=== PATIENT | male | born 1965 | race African-American/Black ===

== ENCOUNTER 2023-02-11 16:22 | Inpatient (IN) | payer OTHER ==
[2023-02-11 17:25] VITALS: BMI 27.4
[2023-02-11] MEDS ORDERED: DICYCLOMINE HCL 10 MG CAPSULE PO PRN (18:06)
[2023-02-11] MEDS ORDERED: BENZOCAINE/MENTHOL (CHLORASEPTIC ) LOZENGE MM PRN (18:06)
[2023-02-11] MEDS ORDERED: NALOXONE HCL (KLOXXADO) 8 MG SPRAY NS PRN (18:06)
[2023-02-11] MEDS ORDERED: ACETAMINOPHEN 325 MG TABLET (FP) PO PRN (18:06)
[2023-02-11] MEDS ORDERED: IBUPROFEN 600 MG TABLET (FP) PO PRN (18:06)
[2023-02-11] MEDS ORDERED: ONDANSETRON *ODT* 4 MG TABLET SL PRN (18:06)
[2023-02-11] MEDS ORDERED: BENZONATATE 200 MG CAPSULE PO PRN (18:06)
[2023-02-11] MEDS ORDERED: MAGNESIUM HYDROX 2400MG/30ML ORAL SUSPENSION 30 ML CUP PO PRN (18:06)
[2023-02-11] MEDS ORDERED: NALOXONE HCL 0.4 MG/ML VIAL IM PRN (18:06)
[2023-02-11] MEDS ORDERED: NICOTINE 10 MG CARTRIDGE (INHALER) IH PRN (18:06)
[2023-02-11] MEDS ORDERED: BISMUTH SUBSALICYLATE 524 MG/30 ML PO PRN (18:06)
[2023-02-11] MEDS ORDERED: cloNIDine HCL 0.1 MG TABLET PO PRN (18:06)
[2023-02-11] MEDS ORDERED: guaiFENesin 600 MG TABLET.ER (FP) PO PRN (18:06)
[2023-02-11] MEDS ORDERED: POLYETHYLENE GLYCOL (HEALTHYLAX) 3350 17 GM PACKET PO PRN (18:06)
[2023-02-11] MEDS ORDERED: IBUPROFEN 400 MG TABLET (FP) PO PRN (18:06)
[2023-02-11] MEDS ORDERED: LOPERAMIDE HCL 2 MG CAPSULE PO PRN (18:06)
[2023-02-11] MEDS ORDERED: MAG HYDROX/AL HYDROX/SIMETH 30 ML UNIT-DOSE CUP PO PRN (18:06)
[2023-02-11] MEDS ORDERED: methaDONE HCL 10 MG TABLET (FOR DETOX USE ONLY) PO ONE (19:00)
[2023-02-11] MEDS: MELATONIN 5 MG TABLETS PO SCH (22:31)
[2023-02-11] MEDS: THIAMINE HCL 100 MG TABLET (FP) PO SCH (22:31)
[2023-02-12] MEDS: LOSARTAN 50MG/HCTZ 12.5MG 1 TAB PO SCH (10:01)
[2023-02-12] MEDS: ASPIRIN 81 MG CHEWABLE TABLETS PO SCH (10:01)
[2023-02-12] MEDS: PRENATAL VITAMINS W/ FOLIC ACID TABLET (FP) PO SCH (10:01)
[2023-02-12] MEDS: METHOCARBAMOL 500 MG TABLET PO PRN (10:02)
[2023-02-12 12:30] LABS: CHLORIDE 98 mmol/L (98-107); SODIUM 140 mmol/L (136-145)
[2023-02-12 12:35] LABS: CALCIUM 9.7 mg/dL (8.5-10.1)
[2023-02-12 12:36] LABS: ALBUMIN 4.1 g/dl (3.4-5.0); BLOOD UREA NITROGEN 28.4 mg/dL (7-18); CO2 34 mmol/L (21-32); GLUCOSE,RANDOM 113 mg/dL (74-106)
[2023-02-12 12:39] LABS: CREATININE 1.3 mg/dL (0.55-1.3); SGOT/AST 21 U/L (15-37); SGPT/ALT 30 U/L (13-61)
[2023-02-12 12:41] LABS: BILIRUBIN,TOTAL 1.4 mg/dL (0.2-1); TOT PROT 7.4 g/dl (6.4-8.2)
[2023-02-12 12:42] LABS: ALK PHOS 90 U/L (45-117)
[2023-02-12 12:46] LABS: ANION GAP 8 MMOL/L (8-16); POTASSIUM 2.6 mmol/L (3.5-5.1)
[2023-02-12] MEDS ORDERED: POTASSIUM CHLORIDE ORAL LIQUID 20 MEQ/15 ML PO ONE (12:48)
[2023-02-12 13:12] LABS: HEMATOCRIT 35.9 % (35.4-49); HEMOGLOBIN 12.2 GM/dL (11.7-16.9); MCH 26.8 pg (25.7-33.7); MCHC 34.1 g/dl (32.0-35.9); MEAN CELL VOLUME 78.7 fl (80-96); PLATELET COUNT 231 10^3/uL (134-434); RBC 4.56 M/mm3 (4.00-5.60); RDW 14.7 % (11.9-15.9); WHITE BLOOD COUNT 7.5 K/mm3 (4.0-10.0)
[2023-02-12] MEDS: POTASSIUM CHLORIDE ORAL LIQUID 20 MEQ/15 ML PO SCH (22:15)
[2023-02-12] MEDS: THIAMINE HCL 100 MG TABLET (FP) PO SCH (22:16)
[2023-02-12] MEDS: MELATONIN 5 MG TABLETS PO SCH (22:16)
[2023-02-12] MEDS: hydrOXYzine PAMOATE 25 MG CAPSULE (FP) PO PRN (22:16)
[2023-02-13] MEDS ORDERED: methaDONE HCL 10 MG TABLET (FOR DETOX USE ONLY) PO ONE (10:00)
[2023-02-13] MEDS: POTASSIUM CHLORIDE ORAL LIQUID 20 MEQ/15 ML PO SCH ×2 (10:02→22:19)
[2023-02-13] MEDS: PRENATAL VITAMINS W/ FOLIC ACID TABLET (FP) PO SCH (10:03)
[2023-02-13] MEDS: ASPIRIN 81 MG CHEWABLE TABLETS PO SCH (10:03)
[2023-02-13] MEDS: METHOCARBAMOL 500 MG TABLET PO PRN (10:04)
[2023-02-13] MEDS: LOSARTAN 50MG/HCTZ 12.5MG 1 TAB PO SCH (10:04)
[2023-02-13] MEDS: hydrOXYzine PAMOATE 25 MG CAPSULE (FP) PO PRN (10:04)
[2023-02-13 12:10] LABS: POTASSIUM 3.1 mmol/L (3.5-5.1)
[2023-02-13 12:20] LABS: BLOOD UREA NITROGEN 22.2 mg/dL (7-18)
[2023-02-13 12:25] LABS: BILIRUBIN,TOTAL 1.2 mg/dL (0.2-1)
[2023-02-13] MEDS: MELATONIN 5 MG TABLETS PO SCH (22:19)
[2023-02-13] MEDS: THIAMINE HCL 100 MG TABLET (FP) PO SCH (22:19)
[2023-02-14] MEDS: POTASSIUM CHLORIDE ORAL LIQUID 20 MEQ/15 ML PO SCH (10:06)
[2023-02-14] MEDS: METHOCARBAMOL 500 MG TABLET PO PRN (10:07)
[2023-02-14] MEDS: ASPIRIN 81 MG CHEWABLE TABLETS PO SCH (10:07)
[2023-02-14] MEDS: LOSARTAN 50MG/HCTZ 12.5MG 1 TAB PO SCH (10:07)
[2023-02-14] MEDS: PRENATAL VITAMINS W/ FOLIC ACID TABLET (FP) PO SCH (10:07)
[2023-02-14] MEDS: hydrOXYzine PAMOATE 25 MG CAPSULE (FP) PO PRN (10:07)
[2023-02-14] MEDS: THIAMINE HCL 100 MG TABLET (FP) PO SCH (22:16)
[2023-02-14] MEDS: MELATONIN 5 MG TABLETS PO SCH (22:16)
[2023-02-15] MEDS ORDERED: methaDONE HCL 10 MG TABLET (FOR DETOX USE ONLY) PO ONE (10:00)
[2023-02-15] MEDS: ASPIRIN 81 MG CHEWABLE TABLETS PO SCH (10:05)
[2023-02-15] MEDS: hydrOXYzine PAMOATE 25 MG CAPSULE (FP) PO PRN (10:05)
[2023-02-15] MEDS: PRENATAL VITAMINS W/ FOLIC ACID TABLET (FP) PO SCH (10:05)
[2023-02-15] MEDS: METHOCARBAMOL 500 MG TABLET PO PRN (10:05)
[2023-02-15] MEDS: LOSARTAN 50MG/HCTZ 12.5MG 1 TAB PO SCH (10:06)
[2023-02-15] MEDS ORDERED: cloNIDine HCL 0.1 MG TABLET PO ONE (13:15)
[2023-02-15] MEDS: MELATONIN 5 MG TABLETS PO SCH (22:46)
[2023-02-15] MEDS: THIAMINE HCL 100 MG TABLET (FP) PO SCH (22:46)
[2023-02-16 09:20] VITALS: BP 155/93; PULSE 77; RESP 18; TEMP 98.4
[2023-02-16] MEDS: ASPIRIN 81 MG CHEWABLE TABLETS PO SCH (10:00)
[2023-02-16] MEDS: LOSARTAN 50MG/HCTZ 12.5MG 1 TAB PO SCH (10:00)
[2023-02-16] MEDS: PRENATAL VITAMINS W/ FOLIC ACID TABLET (FP) PO SCH (10:00)
== END 2023-02-16 10:01 | disposition home or self-care (01) | DRG 773 ==
LOC: YASAS 16:22 → Y6N 18:41
PROVIDERS: ADMIT Allergy & Immunology; ATTEND Surgery
PROC: HZ2ZZZZ Detoxification Services for Substance Abuse Treatment (ICD-10-PCS; principal; 2023-02-11)
DX: F11.23 Opioid dependence with withdrawal (principal); F17.210 Nicotine dependence, cigarettes, uncomplicated; E87.6 Hypokalemia; Z88.0 Allergy status to penicillin
CPT/HCPCS: 36415; 80053; 82247; 83036; 84132; 84520; 85027; 86780; 87635; C9803-CS; U0003; U0005